=== PATIENT | female | born 1990 ===

== ENCOUNTER 2020-05-15 20:45 | Emergency (ER) | payer OTHER ==
[~2020-05-15] VITALS: Ht 162.6 cm; Wt 59.9 kg
[2020-05-16] MEDS ORDERED: IBUPROFEN800 MG PO (00:43)
[2020-05-16] MEDS ORDERED: ALLEGRA-D 12 H1 EACH PO (00:43)
== END 2020-05-16 00:54 | disposition home or self-care (01) ==
LOC: ER 20:45
DX: J06.9 Acute upper respiratory infection, unspecified (principal); Z03.818 Encounter for observation for suspected exposure to other biological agents ruled out